=== PATIENT | male | born 1935 | race Caucasian/White ===

== ENCOUNTER 2016-07-18 07:48 | Day surgery (SDC) | payer MEDICARE, BC ==
[~2016-07-18] VITALS: Ht 172.7 cm; Wt 94.2 kg
[~2016-07-18 07:48] MED LIST: ASPIR 8181 MG PO; CIALIS5 MG PO; COMPAZINE10 MG PO; FLOMAX DPS0.4 MG PO; HYZAAR 50-12.51 TAB PO; LACTULOSE20 GM/30 M PO; LIPITOR DPS20 MG PO; MAALOX DPS30 ML PO; NORVASC5 MG PO; ROBITUSSIN AC D30 ML PO; TYLENOL DPS325 MG PO; ZYLOPRIM-DPS300 MG PO
--- NOTE | 2016-07-20 08:02 | OR ---
ADMIT: 07/18/2016 RM/LOC: [facility] MR#: [id number] [address] BEE ANTONIO [address] [place], [place] [id number] Operative/Delivery Room Report SEX: M AGE: 80 : 1935 SURGERY DATE: 07/18/2016 SURGEON: Kailee Arguello MD CIRCUS TRAIN SUPERVISOR: None. PREPROCEDURE DIAGNOSES: 1. Cervical spondylosis. 2. Cervicalgia. 3. Chronic daily headache. POSTPROCEDURE DIAGNOSES: 1. Cervical spondylosis. 2. Cervicalgia. 3. Chronic daily headache. OPERATION: Bilateral C2, C3, and C4 cervical medial branch block. INDICATIONS FOR PROCEDURE: The patient is a pleasant gentleman with history of chronic daily headache and neck pain secondary to above-mentioned diagnoses, come here for planned bilateral C2, C3, and C4 medial branch block. ANESTHESIA: Local without sedation. ESTIMATED BLOOD LOSS: Zero. COMPLICATIONS: None immediately evident. DESCRIPTION OF PROCEDURE: After the patient was seen in the preoperative area, vital signs were taken prior to procedure. The risks, benefits, and alternative therapies were discussed at length. The patient comes in, consent is obtained and updated. The patient was taken to the fluoroscopy suite and ADMIT: 07/18/2016 RM/LOC: [facility] MR#: [id number] [address] [address] BEE ANTONIO [address] [place], [place] [id number] Operative/Delivery Room Report SEX: M AGE: 80 : 1935 placed on the fluoroscopic table in the prone position. Pressure points were padded to comfort, monitor applied, and a timeout performed. Next, the patient's jaw was turned to the left side. The patient was monitored throughout the procedure. The patient's cervical area was then prepped and draped in a sterile fashion using ChloraPrep. Fluoroscopy was then brought in to identify C2-C3 junction, C3 waist, and C4 waist on the right side; made contact with C2-C3 junction, C3 waist, and C4 waist on the right side. Isovue- 300 was used to confirm the placement. Then I injected 0.5 ml solution consisting of 5 mg of dexamethasone with 0.25% bupivacaine distributed at each level. Then moved on to the left side and repeated the same procedure. On examination, ten minutes after the procedure, the patient had 60% pain relief, and range of motion went from 5 degree to 10 degree of extension. Kailee Arguello MD/ glenn JOB #: [id number] CC: Kailee Arguello, Attending Physician Chinmay George, Family Physician
== END 2016-07-18 09:12 | disposition home or self-care (01) ==
LOC: SSS 07:48
PROC: 3E0U3BZ Introduction of Anesthetic Agent into Joints, Percutaneous Approach (ICD-10-PCS; principal; 2016-07-18)
PROC: 3E0U33Z Introduction of Anti-inflammatory into Joints, Percutaneous Approach (ICD-10-PCS; principal; 2016-07-18)
PROC: BR14ZZZ Fluoroscopy of Cervical Facet Joint(s) (ICD-10-PCS; principal; 2016-07-18)
DX: G89.29 Other chronic pain (principal); M47.812 Spondylosis without myelopathy or radiculopathy, cervical region; R51 Headache; F41.9 Anxiety disorder, unspecified; I10 Essential (primary) hypertension; E78.5 Hyperlipidemia, unspecified; Z85.038 Personal history of other malignant neoplasm of large intestine; Z90.49 Acquired absence of other specified parts of digestive tract; Z79.82 Long term (current) use of aspirin; Z96.649 Presence of unspecified artificial hip joint; Z96.659 Presence of unspecified artificial knee joint; Z79.899 Other long term (current) drug therapy; Z98.890 Other specified postprocedural states

== ENCOUNTER 2016-08-01 08:40 | Day surgery (SDC) | payer MEDICARE, BC ==
[~2016-08-01] VITALS: Ht 177.8 cm
--- NOTE | 2016-08-03 08:34 | OR ---
ADMIT: 08/01/2016 RM/LOC: [facility] MR#: [id number] [address] BEE AN[address]IO [address] [place] [address] Operative/Delivery Room Report SEX: M AGE: 80 : 1935 SURGERY DATE: 08/01/2016 SURGEON: Kailee Arguello MD PREOPERATIVE DIAGNOSES: 1. Cervical spondylosis. 2. Cervicalgia. 3. Chronic daily headache. POSTOPERATIVE DIAGNOSES: 1. Cervical spondylosis. 2. Cervicalgia. 3. Chronic daily headache. OPERATION: Bilateral C2, C3, and C4 medial branch block. INDICATION FOR PROCEDURE: The patient is a pleasant gentleman with history of chronic neck pain with headache secondary to above mentioned diagnoses, comes here for planned bilateral C2, C3, and C4 medial branch block. ANESTHESIA: Local without sedation. ESTIMATED BLOOD LOSS: Zero. COMPLICATIONS: None. DESCRIPTION OF PROCEDURE: After the patient was seen in the preoperative area, vital signs were taken prior to procedure. The risks, benefits, and alternative therapies were discussed at length. The patient comes in, consent is obtained and updated. The patient was taken to the fluoroscopy suite and placed on the fluoroscopic table in the prone position. Pressure points were padded to comfort, monitor applied, and a timeout performed. Next, the patient's jaw was turned to the left side. The patient was monitored throughout the procedure. The patient's cervical area was then prepped and ADMIT: 08/01/2016 RM/LOC: [facility] MR#: [id number] [address] [address] BEE ANTONIO [address] [place] [address] Operative/Delivery Room Report SEX: M AGE: 80 : 1935 draped in a sterile fashion using ChloraPrep. Fluoroscopy was then brought in to identify C2-C3 junction, C3 waist, and C4 waist. A 32-gauge curved tip spinal needle was then advanced until making contact with C2-C3 junction, C3 waist, and C4 waist on the right side. Isovue-300 was used to confirm the placement. Then I injected 0.5 ml solution consisting of 5 mg of dexamethasone with 0.25% bupivacaine was distributed at each level. Then we moved on to the left side and repeated the same procedure. PLAN: On examination ten minutes after the procedure, the patient had 80% pain relief, and range of motion went from 5 degree of extension to 15 degree of extension. Kailee Arguello MD/ glenn JOB #: [id number] CC: Kailee Arguello, Attending Physician Chinmay George, Family Physician
== END 2016-08-01 09:54 | disposition home or self-care (01) ==
LOC: SSS 08:40
PROC: 3E0T3BZ Introduction of Anesthetic Agent into Peripheral Nerves and Plexi, Percutaneous Approach (ICD-10-PCS; principal; 2016-08-01)
PROC: 3E0T33Z Introduction of Anti-inflammatory into Peripheral Nerves and Plexi, Percutaneous Approach (ICD-10-PCS; principal; 2016-08-01)
PROC: BR14YZZ Fluoroscopy of Cervical Facet Joint(s) using Other Contrast (ICD-10-PCS; principal; 2016-08-01)
DX: G89.29 Other chronic pain (principal); M47.812 Spondylosis without myelopathy or radiculopathy, cervical region; G56.00 Carpal tunnel syndrome, unspecified upper limb; M48.00 Spinal stenosis, site unspecified; F41.9 Anxiety disorder, unspecified; E78.5 Hyperlipidemia, unspecified; I10 Essential (primary) hypertension; Z96.659 Presence of unspecified artificial knee joint; Z96.649 Presence of unspecified artificial hip joint; Z87.891 Personal history of nicotine dependence; Z79.899 Other long term (current) drug therapy; Z79.82 Long term (current) use of aspirin

== ENCOUNTER 2016-08-29 07:34 | Day surgery (SDC) | payer MEDICARE, BC | END 2016-08-29 09:47 | disposition home or self-care (01) | DX: G89.29 Other chronic pain (principal); M47.812 Spondylosis without myelopathy or radiculopathy, cervical region; Z79.899 Other long term (current) drug therapy ==